=== PATIENT | female | born 1975 | race Asian ===

== ENCOUNTER 2016-03-08 17:31 | Emergency (ER) | payer OTHER ==
[~2016-03-08] VITALS: Ht 175.3 cm; Wt 113.4 kg
[2016-03-08 17:56] LABS: PLATELET COUNT 249 K/uL (152-353)
[2016-03-08 17:57] LABS: POTASSIUM 3.1 mmol/L (3.6-5.2); SODIUM 134 mmol/L (136-145)
[2016-03-08 18:46] VITALS: BP 166/74; TEMP 97.7
== END 2016-03-08 18:45 | disposition home or self-care (01) ==
LOC: ED 17:31
DX: J02.0 Streptococcal pharyngitis (principal); N39.0 Urinary tract infection, site not specified; F12.10 Cannabis abuse, uncomplicated
CPT/HCPCS: 36415; 80053; 80307; 81000; 85027; 87077; 87086; 87088; 87186; 87804; 87880; 96372; 99283; G0479; J0696

== ENCOUNTER 2017-10-01 02:26 | Emergency (ER) | payer OTHER ==
[~2017-10-01] VITALS: Ht 175.3 cm; Wt 99.8 kg
[2017-10-01 02:30] VITALS: TEMP 98.6
[2017-10-01 06:44] VITALS: BP 156/74
== END 2017-10-01 06:58 | disposition home or self-care (01) ==
LOC: ED 02:26
PROC: 0QSJXZZ Reposition Right Fibula, External Approach (ICD-10-PCS; principal; 2017-10-01)
DX: S82.891A Other fracture of right lower leg, initial encounter for closed fracture (principal); W01.0XXA Fall on same level from slipping, tripping and stumbling without subsequent striking against object, initial encounter; Y92.018 Other place in single-family (private) house as the place of occurrence of the external cause
CPT/HCPCS: 96374; 96375; 96376; 99284; J2175; J2250; J2405

== ENCOUNTER 2018-09-16 08:10 | Emergency (ER) | payer OTHER ==
[~2018-09-16] VITALS: Ht 175.3 cm; Wt 99.8 kg
[2018-09-16 08:15] VITALS: TEMP 98.2
[2018-09-16 11:05] LABS: POTASSIUM 4.4 mmol/L (3.6-5.2)
[2018-09-16 13:02] LABS: PLATELET COUNT 205 K/uL (152-353)
[2018-09-16 14:15] VITALS: BP 139/76
== END 2018-09-16 14:40 | disposition home or self-care (01) ==
LOC: ED 08:10
PROVIDERS: Family Medicine
DX: N39.0 Urinary tract infection, site not specified (principal); K59.09 Other constipation; R59.0 Localized enlarged lymph nodes
CPT/HCPCS: 36415; 80053; 81000; 81025; 85027; 87077; 87086; 87088; 87186; 96365; 96375; 99284; J0696; J1885; Q9963

== ENCOUNTER 2021-07-25 14:05 | Outpatient (CLI) | payer OTHER | END 2021-07-25 19:00 | disposition home or self-care (01) | LOC: RAD 14:05 | PROVIDERS: ATTEND Nurse Practitioner Family | DX: M25.571 Pain in right ankle and joints of right foot (principal) ==

== ENCOUNTER 2021-09-26 16:20 | Emergency (ER) | payer OTHER ==
[~2021-09-26] VITALS: Ht 175.3 cm; Wt 99.8 kg
[2021-09-26 16:27] VITALS: TEMP 97.7
[2021-09-26 17:29] LABS: PLATELET COUNT 203 K/uL (152-353)
[2021-09-26 17:38] LABS: POTASSIUM 3.9 mmol/L (3.6-5.2)
[2021-09-26 18:31] VITALS: BP 140/78
== END 2021-09-26 18:31 | disposition home or self-care (01) ==
LOC: ED 16:20
PROVIDERS: Emergency Medicine
DX: R51.9 Headache, unspecified (principal); R82.5 Elevated urine levels of drugs, medicaments and biological substances
CPT/HCPCS: 80053; 80307; 84484; 85027; 93005; 96374; 96375; 99284; J1885; J2360